=== PATIENT | female | born 2000 ===

== ENCOUNTER 2021-07-18 19:01 | Emergency (ER) | payer MEDICAID ==
[~2021-07-18] VITALS: Ht 154.9 cm; Wt 79.4 kg
[2021-07-19 00:05] VITALS: BP 165/98
== END 2021-07-18 22:42 | disposition home or self-care (01) ==
LOC: EDSEX 19:01 → ER 19:01 → EDBD 19:01 → ER 22:42
DX: S42.002A Fracture of unspecified part of left clavicle, initial encounter for closed fracture (principal); S62.102A Fracture of unspecified carpal bone, left wrist, initial encounter for closed fracture; S43.492A Other sprain of left shoulder joint, initial encounter; S50.12XA Contusion of left forearm, initial encounter; M62.838 Other muscle spasm; R51.9 Headache, unspecified; E66.9 Obesity, unspecified; Z68.33 Body mass index [BMI] 33.0-33.9, adult; V49.49XA Driver injured in collision with other motor vehicles in traffic accident, initial encounter; Y93.89 Activity, other specified; Y92.488 Other paved roadways as the place of occurrence of the external cause; Y99.8 Other external cause status
CPT/HCPCS: 70450; 72125; 73000; 73030; 73090; 81025